=== PATIENT | female | born 1955 | race Caucasian/White ===

== ENCOUNTER 2021-02-17 09:50 | Outpatient (CLI) | payer MEDICARE | END 2021-02-17 09:51 | disposition home or self-care (01) | LOC: CSHMAMMO 09:50 | PROVIDERS: ATTEND Nurse Practitioner Family | DX: Z12.31 Encounter for screening mammogram for malignant neoplasm of breast (principal); Z80.3 Family history of malignant neoplasm of breast | CPT/HCPCS: 77063; 77067 ==

== ENCOUNTER 2022-08-03 12:29 | Outpatient (CLI) | payer MEDICARE ==
[2022-08-03] MEDS ORDERED: Magnevist 469MG/ML 20 ML VIAL ONE (14:36)
== END 2022-08-03 12:30 | disposition home or self-care (01) ==
LOC: CSHMRI 12:29
PROVIDERS: ATTEND Ophthalmology
DX: H34.232 Retinal artery branch occlusion, left eye (principal)
CPT/HCPCS: 70544; 70549; 82565